=== PATIENT | male | born 1980 | race Caucasian/White ===

== ENCOUNTER 2019-09-03 10:01 | Emergency (ER) | payer BC ==
[2019-09-03 10:09] VITALS: BP 144/87; PULSE 72
--- NOTE | 2019-09-03 10:28 | EDM.PDOC ---
ED HPI GENERAL MEDICAL PROBLEM - General Chief Complaint: Laceration Stated Complaint: GUTTING DEER AND CUT FINGER Time Seen by Provider: 09/03/19 10:24 Source of Information: Reports: Patient History Limitations: Reports: No Limitations - History of Present Illness INITIAL COMMENTS - FREE TEXT/NARRATIVE: 38 YO WM presents to ER with finger tip laceration which occurred today while cleaning a deer. Pt reports using a sharp filet knife and accidentally cutting the tip of his right ring finger with the knife. Pt denies any other injury. Pt reports last tetanus is believed to be 3 years ago in clinic from laceration at that time. Pt able to control bleeding with pressure. Pt has no motor or significant sensory deficits. 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) Right Finger-Ring Pain Score (Numeric/FACES): 3 - Related Data Allergies Allergy/AdvReac Type Severity Reaction Status Date / Time No Known Drug Allergies Allergy none Verified 09/03/19 10:09 Home Meds: Home Meds Cephalexin [Keflex] 500 mg PO QID #28 capsule 09/03/19 [Rx] Past Medical History HEENT History: Reports: Impaired Vision Musculoskeletal History: Reports: Fracture Psychiatric History: Reports: Panic Attack Endocrine/Metabolic History: Reports: Obesity/BMI 30+ - Infectious Disease History Infectious Disease History: Reports: Chicken Pox - Past Surgical History Head Surgeries/Procedures: Reports: None Endocrine Surgical History: Reports: None Musculoskeletal Surgical History: Reports: None Social & Family History - Family History Family Medical History: Noncontributory Cardiac: Reports: [place] Psychiatric: Reports: Panic Attack ED ROS GENERAL - Review of Systems Review Of Systems: See Below Constitutional: Reports: No Symptoms HEENT: Reports: No Symptoms Respiratory: Reports: No Symptoms Cardiovascular: Reports: No Symptoms Endocrine: Reports: No Symptoms GI/Abdominal: Reports: No Symptoms : Reports: No Symptoms Musculoskeletal: Reports: No Symptoms Skin: Reports: Wound (finger tip avulsion to right ring finger) Neurological: Reports: No Symptoms Psychiatric: Reports: No Symptoms Hematologic/Lymphatic: Reports: No Symptoms Immunologic: Reports: No Symptoms ED EXAM, SKIN/RASH Exam: See Below Exam Limited By: No Limitations General Appearance: Alert, WD/WN, No Apparent Distress Throat/Mouth: Normal Inspection, Normal Lips, Normal Teeth, Normal Gums, Normal Oropharynx, Normal Voice, No Airway Compromise Head: Atraumatic, Normocephalic Neck: Normal Inspection, Supple, Non-Tender, Full Range of Motion Respiratory/Chest: No Respiratory Distress, Lungs Clear, Normal Breath Sounds, No Accessory Muscle Use, Chest Non-Tender Cardiovascular: Normal Peripheral Pulses, Regular Rate, Rhythm, No Edema, No Gallop, No JVD, No Murmur, No Rub GI/Abdominal: Normal Bowel Sounds, Soft, Non-Tender, No Organomegaly, No Distention, No Abnormal Bruit, No Mass Back Exam: Normal Inspection, Full Range of Motion Extremities: Normal Inspection, Normal Range of Motion, No Pedal Edema, Normal Capillary Refill Neurological: Alert, Oriented, CN II-XII Intact, Normal Cognition, Normal Gait, Normal Reflexes, No Motor/Sensory Deficits Psychiatric: Normal Affect, Normal Mood Skin: Wound/Incision (finger tip avulsion laceration to right ring finger) Location, Skin: Upper Extremity, Right Lymphatic: No Adenopathy Course - Vital Signs Last Recorded V/S: Last Vital Signs Temp 35.8 C 09/03/19 10:06 Pulse 72 09/03/19 10:06 Resp 16 09/03/19 10:06 BP 144/87 H 09/03/19 10:06 Pulse Ox 95 09/03/19 10:06 - Orders/Labs/Meds Orders: Active Orders 24 hr Category Date Time Status Fingers Fourth Digit Rt F8 [CR] Stat Exams 09/03/19 10:27 Ordered Departure - Departure Time of Disposition: 10:44 Disposition: Home, Self-Care 01 Condition: Good Clinical Impression: Avulsion, finger tip Qualifiers: Encounter type: initial encounter Qualified Code(s): S61.209A - Unspecified open wound of unspecified finger without damage to nail, initial encounter - Discharge Information Prescriptions: Cephalexin [Keflex] 500 mg PO QID #28 capsule Instructions: Wound Care, Adult Referrals: Laina Vargas PA-C [Primary Care Provider] - Forms: ED Department Discharge Additional Instructions: 1. discharge home 2. wound care instructions given- keep clean and dry 3. Keflex 500mg QID x 7 days for prophylaxis 4. follow up in 2 days in clinic for recheck 5. return to ER for worsening symptoms - My Orders Last 24 Hours: My Active Orders 09/03/19 10:27 Fingers Fourth Digit Rt F8 [CR] Stat - Assessment/Plan Last 24 Hours: My Active Orders 09/03/19 10:27 Fingers Fourth Digit Rt F8 [CR] Stat Assessment:: 1. right ring finger tip avulsion laceration Plan: 1. discharge home 2. wound care instructions given- keep clean and dry 3. Keflex 500mg QID x 7 days for prophylaxis 4. follow up in 2 days in clinic for recheck 5. return to ER for worsening symptoms
--- NOTE | 2019-09-03 10:54 | CR ---
[id number] RAD/RAD Fingers Right EXAM: 3 VIEWS 4TH DIGIT. INDICATION: TRAUMA. COMPARISON: None. DISCUSSION: Cortical irregularity involving the base of the distal 4th phalanx suggestive of nondisplaced fracture. IMPRESSION: 1. As above. Emmanuel Stout DO 09/03/19 1053 Thank you for allowing us to participate in the care of your patient.
[2019-09-03] MEDS: Diphtheria,Pertussis(Acell),Tetanus Vaccine 0.5 ML SDV IM ONE (10:56)
== END 2019-09-03 11:00 | disposition home or self-care (01) ==
LOC: KA.ED 10:01
DX: S61.214A Laceration without foreign body of right ring finger without damage to nail, initial encounter (principal); Z23 Encounter for immunization; E66.9 Obesity, unspecified; Z68.43 Body mass index [BMI] 50.0-59.9, adult; W26.0XXA Contact with knife, initial encounter
CPT/HCPCS: 73140-F8; 90471; 90715; 99283-25

== ENCOUNTER 2020-06-01 16:35 | Emergency (ER) | payer BC ==
[2020-06-01 16:48] VITALS: BP 136/83; PULSE 78
[2020-06-01] MEDS ORDERED: Ketorolac 60 MG/2 ML SDV IM ONE (16:54)
--- NOTE | 2020-06-01 17:02 | EDM.PDOC ---
ED HPI GENERAL MEDICAL PROBLEM - General Chief Complaint: General Stated Complaint: right lateral rib pain Time Seen by Provider: 06/01/20 17:02 Source of Information: Reports: Patient History Limitations: Reports: No Limitations - History of Present Illness INITIAL COMMENTS - FREE TEXT/NARRATIVE: 10 AM, while playing softball, right arm outstretched for a ball, when struck with the shoulder region of another player bluntly to the right lateral chest wall. [place] a pop when this occurred, but was able to finish the game. He then rested between games and was actually able to play 2 more games with minimal discomfort/at least not specifically worsening. He then rode for roughly 2 hours home at which time getting out of the vehicle noticed significant discomfort with positioning as well as taking a deep breath. Pain remains predominantly at the mid right lateral chest wall fifth rib region. Denies any other injuries or complaints. He is not truly short of breath but states uncomfortable with deep inspiration. Onset: Today, Sudden Right Lower Thoracic Pain Score (Numeric/FACES): 7 - Related Data Allergies Allergy/AdvReac Type Severity Reaction Status Date / Time No Known Drug Allergies Allergy none Verified 09/03/19 10:09 Home Meds: Home Meds Rosuvastatin Calcium 20 mg PO DAILY 06/01/20 [History] Past Medical History HEENT History: Reports: Impaired Vision Musculoskeletal History: Reports: Fracture Psychiatric History: Reports: Panic Attack Endocrine/Metabolic History: Reports: Obesity/BMI 30+ - Infectious Disease History Infectious Disease History: Reports: Chicken Pox - Past Surgical History Head Surgeries/Procedures: Reports: None Endocrine Surgical History: Reports: None Musculoskeletal Surgical History: Reports: None Social & Family History - Family History Family Medical History: Noncontributory Cardiac: Reports: [place] Psychiatric: Reports: Panic Attack ED ROS GENERAL - Review of Systems Review Of Systems: Comprehensive ROS is negative, except as noted in HPI. ED EXAM, GENERAL - Physical Exam Exam: See Below Free Text/Narrative:: Alert oriented in no specific distress. No cyanosis, no pallor is noted. HEENT is negative for discharge or deformity. Neck is soft supple Thorax is clear no wheezes no crackles somewhat limited to deep inspiration secondary of discomfort to the right lateral rib region. Cardiac is regular I do not appreciate any murmur. Tenderness over the fifth rib region right lateral chest with no ecchymosis no crepitus noted. There is tenderness in the posterior aspect but minimal. When compressing palpating in deep fashion the right posterior ribs he does note mild discomfort to the lateral wall. No flank pain is noted no spinal pain no deficits in motion of the extremities. States pain is almost gone when in the right position but moving and deep breath exacerbates that. States he injection of Toradol he was given seems to be taking the edge off his he is able to move easier now with less discomfort. Discussed rib x-rays to confirm/rule out rib fracture. Course - Vital Signs Last Recorded V/S: Last Vital Signs Temp 36.3 C 06/01/20 16:38 Pulse 78 06/01/20 16:38 Resp 18 06/01/20 16:38 BP 136/83 06/01/20 16:38 Pulse Ox 94 L 06/01/20 16:38 - Orders/Labs/Meds Orders: Active Orders 24 hr Category Date Time Status Ribs 3V w Chest Bi [CR] Routine Exams 06/01/20 16:54 Ordered Meds: Medications Discontinued Medications Generic Name Dose Route Start Last Admin Trade Name Awais PRN Reason Stop Dose Admin Ketorolac Tromethamine 60 mg 06/01/20 16:54 06/01/20 17:00 Toradol IM 06/01/20 16:55 60 mg ONETIME ONE Administration Departure - Departure Time of Disposition: 17:28 Disposition: Home, Self-Care 01 Condition: Good Clinical Impression: Right rib fracture, Rib pain on right side - Discharge Information *PRESCRIPTION DRUG MONITORING PROGRAM REVIEWED*: Not Applicable *COPY OF PRESCRIPTION DRUG MONITORING REPORT IN PATIENT ADRIEN: Not Applicable Forms: ED Department Discharge Additional Instructions: You have 1 slightly displaced rib fracture. You need to avoid any motion, lifting or reaching, that aggravates or increases your pain. Position of comfort with shallow but occasional deep breath to reduce the risk of pneumonia developing. Ribs can take 8+ weeks to heal, dependent on activity and re-injury/aggravation. You may take Tylenol the remainder of today. Starting tomorrow morning you may rotate Tylenol and ibuprofen for discomfort. Ice to the chest wall may help your discomfort by decreasing inflammation. In the event you develop shortness of breath or's increasing/severe chest pain in that region, you need to be seen as soon as possible. Follow-up with your clinic as needed if not starting to show improvement by the end of the first week. Return to the emergency department in the event of sudden worsening symptoms Sepsis Event Note (ED) - Evaluation Sepsis Screening Result: No Definite Risk - Focused Exam Vital Signs: Vital Signs Temp Pulse Resp BP Pulse Ox 06/01/20 16:38 36.3 C 78 18 136/83 94 L - Problem List & Annotations (1) Rib pain on right side SNOMED Code(s): 698447188 Code(s): R07.81 - PLEURODYNIA Status: Acute Priority: High Onset Date: 06/01/20 (2) Injury due to being struck during sports event SNOMED Code(s): 660519469 Code(s): W21.9XXA - STRIKING AGAINST OR STRUCK BY [employer] EQUIPMENT, INIT Status: Acute Priority: High Onset Date: 06/01/20 (3) Closed rib fracture SNOMED Code(s): 00816049 Code(s): S22.39XA - FRACTURE OF ONE RIB, UNSP SIDE, INIT FOR CLOS FX Status: Acute Priority: High Qualifiers: Encounter type: initial encounter Rib fracture type: single rib Laterality: right Qualified Code(s): S22.31XA - Fracture of one rib, right side, initial encounter for closed fracture (4) Right rib fracture SNOMED Code(s): 25970231 Code(s): S22.31XA - FRACTURE OF ONE RIB, RIGHT SIDE, INIT FOR CLOS FX Status: Acute Priority: Medium Qualifiers: Encounter type: initial encounter Fracture type: closed - Problem List Review Problem List Initiated/Reviewed/Updated: Yes - My Orders Last 24 Hours: My Active Orders 06/01/20 16:54 Ribs 3V w Chest Bi [CR] Routine - Assessment/Plan Last 24 Hours: My Active Orders 06/01/20 16:54 Ribs 3V w Chest Bi [CR] Routine Plan: You have 1 slightly displaced rib fracture. You need to avoid any motion, lifting or reaching, that aggravates or increases your pain. Position of comfort with shallow but occasional deep breath to reduce the risk of pneumonia developing. Ribs can take 8+ weeks to heal, dependent on activity and re-injury/aggravation. You may take Tylenol the remainder of today. Starting tomorrow morning you may rotate Tylenol and ibuprofen for discomfort. Ice to the chest wall may help your discomfort by decreasing inflammation. In the event you develop shortness of breath or's increasing/severe chest pain in that region, you need to be seen as soon as possible. Follow-up with your clinic as needed if not starting to show improvement by the end of the first week. Return to the emergency department in the event of sudden worsening symptoms.
--- NOTE | 2020-06-01 17:44 | CR ---
[id number] RAD/RAD Ribs Right W PA Chest EXAM: RAD Ribs Right W PA Chest INDICATION: PAIN, SOFTBALL INJURY, PERSON RAN INTO PTS RT SIDE COMPARISON: None. DISCUSSION: Cardiomediastinal silhouette is normal in size and contour. No infiltrate, effusion, pneumothorax, or edema. Acute minimally displaced fracture of rib 9 on the right laterally. IMPRESSION: Acute minimally displaced fracture of rib 9 on the right laterally. No pneumothorax. Emmanuel Stout DO 06/01/20 1743 Thank you for allowing us to participate in the care of your patient.
== END 2020-06-01 17:40 | disposition home or self-care (01) ==
LOC: KA.ED 16:35
DX: S22.31XA Fracture of one rib, right side, initial encounter for closed fracture (principal); E66.9 Obesity, unspecified; Z68.41 Body mass index [BMI] 40.0-44.9, adult; W50.0XXA Accidental hit or strike by another person, initial encounter; Y93.64 Activity, baseball
CPT/HCPCS: 71101; 96372; 99283; J1885

== ENCOUNTER 2020-09-20 09:31 | Emergency (ER) | payer BC ==
[2020-09-20 09:43] VITALS: BP 136/92; PULSE 68
--- NOTE | 2020-09-20 10:18 | EDM.PDOC ---
ED HPI GENERAL MEDICAL PROBLEM - General Chief Complaint: Eye Problems Stated Complaint: right eye irritation Time Seen by Provider: 09/20/20 09:50 Source of Information: Reports: Patient ([id number]) History Limitations: Reports: No Limitations - History of Present Illness INITIAL COMMENTS - FREE TEXT/NARRATIVE: 39-year-old male presents to the emergency room with red eye and tearing. Patient states that he was eating a metal yesterday and was wearing protective goggles when he felt sudden onset of pain and tearing in his eye. He has had a similar episode with this in his left eye but reports this is less severe. He continues to have difficulty keeping the eye open due to the discomfort and tearing and notices redness he comes in for further evaluation. He does wear corrective lenses which she does not have today he is not wearing contacts. He has obvious tearing and redness in the eye. Visual acuity was checked by the nurse and was 20/70 in both eyes without corrective lenses. He denies any diplopia or blurriness or loss of sight. Onset Date: 09/19/20 Duration: Hour(s):, Constant Location: Reports: Other (right eye) Quality: Reports: Ache Severity: Mild Improves with: Reports: None Worsens with: Reports: None Context: Reports: Other (grinding metal) Associated Symptoms: Reports: Other (Denies blurred or double vision, complains of tearing and red eye.) Right Eye Pain Score (Numeric/FACES): 4 - Related Data Allergies Allergy/AdvReac Type Severity Reaction Status Date / Time No Known Drug Allergies Allergy none Verified 09/20/20 09:33 Home Meds: Home Meds Rosuvastatin Calcium 20 mg PO DAILY 06/01/20 [History] Past Medical History HEENT History: Reports: Impaired Vision Cardiovascular History: Reports: High Cholesterol Respiratory History: Reports: None Gastrointestinal History: Reports: Hemorrhoids Genitourinary History: Reports: None Musculoskeletal History: Reports: Fracture Neurological History: Reports: Concussion Psychiatric History: Reports: Panic Attack Endocrine/Metabolic History: Reports: Obesity/BMI 30+ - Infectious Disease History Infectious Disease History: Reports: Chicken Pox - Past Surgical History Head Surgeries/Procedures: Reports: None HEENT Surgical History: Reports: None Cardiovascular Surgical History: Reports: None Respiratory Surgical History: Reports: None GI Surgical History: Reports: None Male Surgical History: Reports: Circumcision Endocrine Surgical History: Reports: None Neurological Surgical History: Reports: None Musculoskeletal Surgical History: Reports: None Other Musculoskeletal Surgeries/Procedures:: H/O fractures to the collar bone, leg and arm Social & Family History - Family History Family Medical History: No Pertinent Family History Cardiac: Reports: [place] Psychiatric: Reports: Panic Attack - Tobacco Use Tobacco Use Status *Q: Never Tobacco User - Caffeine Use Caffeine Use: Reports: Coffee, Soda, Tea - Alcohol Use Days Per Week of Alcohol Use: 1 Number of Drinks Per Day: 0 Total Drinks Per Week: 0 - Recreational Drug Use Recreational Drug Use: No ED ROS GENERAL - Review of Systems Review Of Systems: Comprehensive ROS is negative, except as noted in HPI. ED EXAM GENERAL W FULL EYE - Physical Exam Exam: See Below Exam Limited By: No Limitations General Appearance: Alert, WD/WN, No Apparent Distress Eye Exam: Bilateral Eye: EOMI, PERRL, Other (tearing red right eye) Visual Acuity (R) 20/: 70 Visual Acuity (L) 20/: 70 With Correction: No Eyelids: Bilateral: Normal Appearance Conjunctiva & Sclera: Right: Discharge (tearing) Extraocular Movements: Bilateral: Intact Pupils: Normal Accommodation Pupillary Size: Bilateral: 2 mm Pupillary Reaction: Bilateral: Brisk Ears: Hearing Grossly Normal Nose: Normal Inspection. No: Nasal Drainage, Clear Rhinorrhea Throat/Mouth: Normal Inspection, Normal Voice, No Airway Compromise Head: Atraumatic, Normocephalic Neck: Normal Inspection, Supple Respiratory/Chest: No Respiratory Distress ED EYE w/ Add Procedure - Eye Procedure Alcaine Drops Administered: Yes Eye FB Removal: no Removal w/ Cotton Swab, no Removal w/ Needle Progress: Bluelight was used and there appears to be a small corneal abrasion in the right lateral aspect of the eye. No foreign body was detected. X-rays did not reveal any retained foreign metal. Course - Vital Signs Last Recorded V/S: Last Vital Signs Temp 98.4 F 09/20/20 09:36 Pulse 68 09/20/20 09:36 Resp 16 09/20/20 09:36 BP 136/92 H 09/20/20 09:36 Pulse Ox 98 09/20/20 09:36 - Orders/Labs/Meds Orders: Active Orders 24 hr Category Date Time Status FB Localized Eye Rt [CR] Stat Exams 09/20/20 09:53 Ordered Meds: Medications Discontinued Medications Generic Name Dose Route Start Last Admin Trade Name Awais PRN Reason Stop Dose Admin Tetracaine HCl 1 ml 09/20/20 10:34 09/20/20 10:36 Tetracaine 0.5% Steri-Unit Maria De Jesus EYERT 09/20/20 10:35 1 ml ASDIRECTED ONE Administration - Radiology Interpretation Free Text/Narrative:: Xray: Right orbital x-ray 1 view Discussion/impression: No radiopaque foreign body Departure - Departure Time of Disposition: 10:51 Disposition: Home, Self-Care 01 Condition: Good Clinical Impression: Abrasion of right cornea Qualifiers: Encounter type: initial encounter Qualified Code(s): S05.01XA - Injury of conjunctiva and corneal abrasion without foreign body, right eye, initial encounter - Discharge Information Instructions: Eye Foreign Body, [id number], Corneal Abrasion Referrals: Laina Vargas PA-C [Primary Care Provider] - Forms: ED Department Discharge Additional Instructions: 1. Use the eyedrops every 4 hours into the right eye. 2. Recommend follow-up with ophthalmology Tuesday in [place] [employer]. - is a phone number for [email or web address] 3. Return back to the emergency room if symptoms worsen or visual changes occur. Sepsis Event Note (ED) - Evaluation Sepsis Screening Result: No Definite Risk - Focused Exam Vital Signs: Vital Signs Temp Pulse Resp BP Pulse Ox 09/20/20 09:36 98.4 F 68 16 136/92 H 98 - My Orders Last 24 Hours: My Active Orders 09/20/20 09:53 FB Localized Eye Rt [CR] Stat - Assessment/Plan Last 24 Hours: My Active Orders 09/20/20 09:53 FB Localized Eye Rt [CR] Stat Assessment:: Right corneal abrasion Plan: 1. Use the eyedrops every 4 hours into the right eye. 2. Recommend follow-up with ophthalmology Tuesday in [place]. - is a phone number for [email or web address] 3. Return back to the emergency room if symptoms worsen or visual changes occur.
[2020-09-20] MEDS ORDERED: Tetracaine HCl/PF 0.5% 4 ML Bottle EYERT ONE (10:34)
--- NOTE | 2020-09-20 10:49 | CR ---
[id number] RAD/RAD Eye Foreign Body Exam: RAD Eye Foreign Body Indication:FEELING OF METAL IN RIGHT EYE. Comparison: No prior imaging for comparison. Discussion/Impression: No radiopaque foreign body. Tim Zarate MD 09/20/20 1048 Thank you for allowing us to participate in the care of your patient.
== END 2020-09-20 10:48 | disposition home or self-care (01) ==
LOC: KA.ED 09:31
DX: S05.01XA Injury of conjunctiva and corneal abrasion without foreign body, right eye, initial encounter (principal); E78.00 Pure hypercholesterolemia, unspecified; E66.9 Obesity, unspecified; Z68.41 Body mass index [BMI] 40.0-44.9, adult; Z79.899 Other long term (current) drug therapy; X58.XXXA Exposure to other specified factors, initial encounter
CPT/HCPCS: 70030-RT; 99283

== ENCOUNTER 2021-05-05 21:19 | Observation (INO) | payer BC ==
[2021-05-05] MEDS ORDERED: Sodium Chloride 0.9% 10 ML Syringe FLUSH PRN (21:21)
[2021-05-05] MEDS ORDERED: Diltiazem 25 MG/5 ML SDV IVPUSH ONE (21:25)
--- NOTE | 2021-05-05 21:25 | EDM.PDOC ---
ED HPI GENERAL MEDICAL PROBLEM - General Chief Complaint: Cardiovascular Problem Stated Complaint: CHEST PRESSURE Time Seen by Provider: 05/05/21 21:22 Source of Information: Reports: Patient History Limitations: Reports: No Limitations - History of Present Illness INITIAL COMMENTS - FREE TEXT/NARRATIVE: 40 YO WM PRESENTS TO ER COMPLAINING OF CHEST TIGHTNESS WITH PALPITATIONS AND SHORTNESS OF BREATH. PT REPORTS HE WAS PLAYING SOFTBALL WHEN HIS SYMPTOMS BEGAN. PT STATES HE WAS SLIDING FOR SECOND BASE AND ROLLED OVER THE BALL WITH HIS CHEST PROMPTING PAIN AND PALPITATIONS. PT WITH HISTORY OF ANXIETY AND ELEVATED CHOLESTEROL. PT DENIES ANY HISTORY OF CAD OR CARDIAC ARRHYTHMIAS. PT ALERT AND ORIENTED X 4 AND ANXIOUS. PT DENIES ANY CHEST PAIN CURRENTLY. PT REPORTS ASSOCIATED LIGHTHEADEDNESS WITHOUT SYNCOPE. Onset: Today Location: Reports: Chest Quality: Reports: Other (TIGHTNESS) Severity: Mild Improves with: Reports: None Worsens with: Reports: None Context: Reports: Activity Associated Symptoms: Reports: Chest Pain, Diaphoresis, Shortness of Breath. Denies: Cough, Fever/Chills, Headaches, Loss of Appetite, Malaise, Nausea/Vomiting, Syncope, Weakness - Related Data Allergies Allergy/AdvReac Type Severity Reaction Status Date / Time No Known Drug Allergies Allergy none Verified 05/05/21 21:39 Home Meds: Home Meds Rosuvastatin Calcium 20 mg PO DAILY 06/01/20 [History] Past Medical History HEENT History: Reports: Impaired Vision Cardiovascular History: Reports: High Cholesterol Respiratory History: Reports: None Gastrointestinal History: Reports: Hemorrhoids Genitourinary History: Reports: None Musculoskeletal History: Reports: Fracture Neurological History: Reports: Concussion Psychiatric History: Reports: Panic Attack Endocrine/Metabolic History: Reports: Obesity/BMI 30+ - Infectious Disease History Infectious Disease History: Reports: Chicken Pox - Past Surgical History Head Surgeries/Procedures: Reports: None HEENT Surgical History: Reports: None Cardiovascular Surgical History: Reports: None Respiratory Surgical History: Reports: None GI Surgical History: Reports: None Male Surgical History: Reports: Circumcision Endocrine Surgical History: Reports: None Neurological Surgical History: Reports: None Musculoskeletal Surgical History: Reports: None Other Musculoskeletal Surgeries/Procedures:: H/O fractures to the collar bone, leg and arm Social & Family History - Family History Family Medical History: No Pertinent Family History Cardiac: Reports: [place] Psychiatric: Reports: Panic Attack - Caffeine Use Caffeine Use: Reports: Coffee, Soda, Tea ED ROS GENERAL - Review of Systems Review Of Systems: See Below Constitutional: Reports: No Symptoms HEENT: Reports: No Symptoms Respiratory: Reports: Shortness of Breath Cardiovascular: Reports: Chest Pain, Lightheadedness, Palpitations Endocrine: Reports: No Symptoms GI/Abdominal: Reports: No Symptoms : Reports: No Symptoms Musculoskeletal: Reports: No Symptoms Skin: Reports: No Symptoms Neurological: Reports: No Symptoms Psychiatric: Reports: No Symptoms Hematologic/Lymphatic: Reports: No Symptoms Immunologic: Reports: No Symptoms ED EXAM, GENERAL - Physical Exam Exam: See Below Exam Limited By: No Limitations General Appearance: Alert, WD/WN, No Apparent Distress Eye Exam: Bilateral Eye: EOMI, PERRL Head: Atraumatic, Normocephalic Neck: Normal Inspection, Supple, Non-Tender, Full Range of Motion Respiratory/Chest: No Respiratory Distress, Lungs Clear, Normal Breath Sounds, No Accessory Muscle Use, Chest Non-Tender Cardiovascular: Normal Peripheral Pulses, No Edema, No Gallop, No JVD, No Murmur, No Rub, Tachycardia, Irregularly Irregular GI/Abdominal: Normal Bowel Sounds, Soft, Non-Tender, No Organomegaly, No Distention, No Abnormal Bruit, No Mass Back Exam: Normal Inspection, Full Range of Motion, NT Extremities: Normal Inspection, Normal Range of Motion, Non-Tender, Normal Capillary Refill, No Pedal Edema Neurological: Alert, Oriented, CN II-XII Intact, Normal Cognition, Normal Gait, Normal Reflexes, No Motor/Sensory Deficits Psychiatric: Normal Affect, Normal Mood Skin Exam: Warm, Dry, Intact, Normal Color, No Rash Lymphatic: No Adenopathy #1 Interpretation EKG Date: 05/05/21 Time: 21:23 Rhythm: A-Fib Rate (Beats/Min): 164 [place]: Normal P-Wave: Present QRS: Normal ST-T: Normal QT: Normal Comparison: NA - No Prior EKG Course - Vital Signs Last Recorded V/S: Last Vital Signs Temp 97.9 F 05/05/21 21:21 Pulse 101 H 05/05/21 22:13 Resp 24 H 05/05/21 22:00 BP 110/74 05/05/21 22:13 Pulse Ox 99 05/05/21 22:32 - Orders/Labs/Meds Orders: Active Orders 24 hr Category Date Time Status Patient Status Manage Transfer [TRANSFER] Routine ADT 05/05/21 22:27 Active Patient Status [ADT] Routine ADT 05/05/21 22:28 Active Cardiac Monitoring [RC] . DIRECTED Care 05/05/21 21:21 Active Cardiac Monitoring [RC] CONTINUOUS Care 05/05/21 22:29 Active EKG Documentation Completion [RC] ASDIRECTED Care 05/05/21 21:21 Active EKG Documentation Completion [RC] ASDIRECTED Care 05/05/21 22:05 Active Oxygen Therapy [RC] PRN Care 05/05/21 22:28 Active Peripheral IV Care [RC] . DIRECTED Care 05/05/21 21:21 Active Up ad Rubia [RC] ASDIRECTED Care 05/05/21 22:28 Active VTE/DVT Education [RC] PER UNIT ROUTINE Care 05/05/21 22:28 Active Vital Signs [RC] Q4H Care 05/05/21 22:28 Active Heart Healthy Diet [DIET] Diet 05/06/21 Breakfast Active Chest 1V Frontal [CR] Stat Exams 05/05/21 21:21 Ordered CORONAVIRUS COVID-19 RAPID [MOLEC] Stat Lab 05/05/21 22:22 Ordered MAGNESIUM [CHEM] AM Lab 05/06/21 05:11 Ordered TROPONIN I HIGH SENSITIVITY [CHEM] AM Lab 05/06/21 05:11 Ordered Diltiazem 125 MG in NS 125 ML @ 5 MG/HR (100ml) Med 05/05/21 22:45 Ordered Diltiazem 125 mg Sodium Chloride 0.9% [Normal Saline] 100 ml IV TITRATE Sodium Chloride 0.9% [Normal Saline] 1,000 ml Med 05/05/21 21:57 Active IV .BOLUS Sodium Chloride 0.9% [Saline Flush] Med 05/05/21 21:21 Active 10 ml FLUSH Q8HR PRN Peripheral IV Insertion Adult [OM.PC] Routine Oth 05/05/21 21:21 Ordered Resuscitation Status Routine Resus Stat 05/05/21 22:28 Ordered EKG 12 Lead [EK] Stat Ther 05/05/21 21:21 Ordered EKG 12 Lead [EK] Stat Ther 05/05/21 22:00 Ordered Medication Orders Sodium Chloride (Normal Saline) 1,000 mls @ 999 mls/hr IV .BOLUS ONE Stop: 05/05/21 22:57 Last Admin: 05/05/21 22:00 Dose: 999 mls/hr Documented by: MATTHIAS Diltiazem HCl 125 mg/ Sodium (Chloride) 125 mls @ 5 mls/hr IV TITRATE YOGESH; Protocol Sodium Chloride (Sodium Chloride 0.9% 10 Ml Syringe) 10 ml FLUSH Q8HR PRN PRN Reason: keep vein open Labs: Laboratory Tests 05/05/21 05/05/21 05/05/21 Range/Units 21:30 21:30 21:30 WBC 9.79 (5.00-10.00) 10^3/uL RBC 5.51 (4.50-6.00) 10^6/uL Hgb 15.6 (13.0-17.0) g/dL Hct 46.7 (40.0-52.0) % MCV 84.8 (82.0-92.0) fL MCH 28.3 (27.0-31.0) pg MCHC 33.4 (32.0-36.0) g/dL RDW 13.4 (11.5-14.5) % Plt Count 338 (150-400) 10^3/uL MPV 9.6 (7.4-10.4) fL Immature Gran % (Auto) 0.1 (0.0-5.0) % Neut % (Auto) 53.2 (50.0-70.0) % Lymph % (Auto) 38.0 (20.0-40.0) % [place] % (Auto) 7.3 (2.0-8.0) % Eos % (Auto) 1.0 (1.0-3.0) % Baso % (Auto) 0.4 (0.0-1.0) % Neut # (Auto) 5.21 (2.50-7.00) 10^3/uL Lymph # (Auto) 3.72 (1.00-4.00) 10^3/uL [place] # (Auto) 0.71 (0.10-0.80) 10^3/uL Eos # (Auto) 0.10 (0.10-0.30) 10^3/uL Baso # (Auto) 0.04 (0.00-0.10) 10^3/uL Immature Gran # (Auto) 0.01 (0.00-0.50) 10^3/uL PT 10.1 (9.2-11.2) SEC INR 1.0 (0.9-1.1) APTT 26.3 (22.8-31.4) SEC Sodium 139 (136-145) mmol/L Potassium 3.8 (3.5-5.1) mmol/L Chloride 100 (98-107) mmol/L Carbon Dioxide 17.6 L (21.0-32.0) mmol/L Anion Gap 25.2 H (5-15) mmol/L BUN 23 H (7-18) mg/dL Creatinine 1.17 (0.51-1.17) mg/dL Est Cr Clr Drug Dosing 96.60 mL/min Estimated GFR (MDRD) > 60 mL/min Glucose 136 (70-140) mg/dL Calcium 9.9 (8.7-10.3) mg/dL Total Bilirubin 0.4 (0.2-1.0) mg/dL AST 24 (15-37) U/L ALT 27 (14-63) U/L Alkaline Phosphatase 98 (46-116) U/L Creatine Kinase 427 H* (26-276) U/L CK-MB (CK-2) 2.69 (0.00-3.60) ng/mL Troponin I High Sens 6.100 (0-76.000) pg/mL B-Natriuretic Peptide 24 (0-100) pg/mL Total Protein 9.0 H (6.4-8.2) g/dL Albumin 4.81 (3.40-5.00) g/dL Meds: Medications Generic Name Dose Route Start Last Admin Trade Name Freq PRN Reason Stop Dose Admin Sodium Chloride 1,000 mls @ 999 mls/hr 05/05/21 21:57 05/05/21 22:00 Normal Saline IV 05/05/21 22:57 999 mls/hr .BOLUS ONE Administration Diltiazem HCl 125 mg/ Sodium 125 mls @ 5 mls/hr 05/05/21 22:45 Chloride IV TITRATE YOGESH Protocol 5 MG/HR Sodium Chloride 10 ml 05/05/21 21:21 Sodium Chloride 0.9% 10 Ml Syringe FLUSH Q8HR PRN keep vein open Discontinued Medications Generic Name Dose Route Start Last Admin Trade Name Freq PRN Reason Stop Dose Admin Diltiazem HCl 20 mg 05/05/21 21:25 05/05/21 21:47 Diltiazem 25 Mg/5 Ml Sdv IVPUSH 05/05/21 21:26 20 mg ONETIME ONE Administration Diltiazem HCl 125 mg/ Sodium 125 mls @ 15 mls/hr 05/05/21 22:00 Chloride IV TITRATE YOGESH 15 MG/HR Diltiazem HCl 125 mg/ Sodium 125 mls @ 5 mls/hr 05/05/21 22:45 Chloride IV TITRATE YOGESH 5 MG/HR - Radiology Interpretation Free Text/Narrative:: CXR-NAD Departure - Departure Time of Disposition: 22:25 Disposition: Refer to Observation Condition: Good Clinical Impression: New onset atrial fibrillation, Atrial fibrillation with rapid ventricular response Referrals: Angelica Blanchard MD [Primary Care Provider] - Sepsis Event Note (ED) - Focused Exam Vital Signs: Vital Signs Temp Pulse Resp BP Pulse Ox Pulse Ox 05/05/21 22:32 99 05/05/21 22:13 101 H 110/74 05/05/21 22:00 115 H 24 H 122/78 100 05/05/21 21:45 144 H 26 H 124/66 97 05/05/21 21:21 97.9 F 163 H 24 H 129/88 100 - My Orders Last 24 Hours: My Active Orders 05/05/21 21:21 Cardiac Monitoring [RC] . DIRECTED EKG Documentation Completion [RC] ASDIRECTED Peripheral IV Care [RC] . DIRECTED Chest 1V Frontal [CR] Stat Sodium Chloride 0.9% [Saline Flush] 10 ml FLUSH Q8HR PRN Peripheral IV Insertion Adult [OM.PC] Routine EKG 12 Lead [EK] Stat 05/05/21 21:57 Sodium Chloride 0.9% [Normal Saline] 1,000 ml IV .BOLUS 05/05/21 22:00 EKG 12 Lead [EK] Stat 05/05/21 22:05 EKG Documentation Completion [RC] ASDIRECTED 05/05/21 22:22 CORONAVIRUS COVID-19 RAPID [MOLEC] Stat 05/05/21 22:27 Patient Status Manage Transfer [TRANSFER] Routine 05/05/21 22:28 Patient Status [ADT] Routine Oxygen Therapy [RC] PRN Up ad Rubia [RC] ASDIRECTED VTE/DVT Education [RC] PER UNIT ROUTINE Vital Signs [RC] Q4H Resuscitation Status Routine 05/05/21 22:29 Cardiac Monitoring [RC] CONTINUOUS 05/05/21 22:45 Diltiazem 125 MG in NS 125 ML @ 5 MG/HR (100ml) Diltiazem 125 mg Sodium Chloride 0.9% [Normal Saline] 100 ml IV TITRATE 05/06/21 05:11 MAGNESIUM [CHEM] AM TROPONIN I HIGH SENSITIVITY [CHEM] AM 05/06/21 Breakfast Heart Healthy Diet [DIET] - Assessment/Plan Admission H&P: Please use this note as an admission H&P Last 24 Hours: My Active Orders 05/05/21 21:21 Cardiac Monitoring [RC] . DIRECTED EKG Documentation Completion [RC] ASDIRECTED Peripheral IV Care [RC] . DIRECTED Chest 1V Frontal [CR] Stat Sodium Chloride 0.9% [Saline Flush] 10 ml FLUSH Q8HR PRN Peripheral IV Insertion Adult [OM.PC] Routine EKG 12 Lead [EK] Stat 05/05/21 21:57 Sodium Chloride 0.9% [Normal Saline] 1,000 ml IV .BOLUS 05/05/21 22:00 EKG 12 Lead [EK] Stat 05/05/21 22:05 EKG Documentation Completion [RC] ASDIRECTED 05/05/21 22:22 CORONAVIRUS COVID-19 RAPID [MOLEC] Stat 05/05/21 22:27 Patient Status Manage Transfer [TRANSFER] Routine 05/05/21 22:28 Patient Status [ADT] Routine Oxygen Therapy [RC] PRN Up ad Rubia [RC] ASDIRECTED VTE/DVT Education [RC] PER UNIT ROUTINE Vital Signs [RC] Q4H Resuscitation Status Routine 05/05/21 22:29 Cardiac Monitoring [RC] CONTINUOUS 05/05/21 22:45 Diltiazem 125 MG in NS 125 ML @ 5 MG/HR (100ml) Diltiazem 125 mg Sodium Chloride 0.9% [Normal Saline] 100 ml IV TITRATE 05/06/21 05:11 MAGNESIUM [CHEM] AM TROPONIN I HIGH SENSITIVITY [CHEM] AM 05/06/21 Breakfast Heart Healthy Diet [DIET] Assessment:: 1. NEW ONSET ATRIAL FIBRILLATION WITH RVR Plan: 1. ADMIT TO MEDICINE/OBSERVATION- DR PERALTA ACCEPTING @1821 2. CARDIZEM GTT 10MG/HR 3. SUPPORTIVE CARE 4. REPEAT TROP I IN AM
[2021-05-05] MEDS ORDERED: Sodium Chloride 0.9% 1,000 ML IV ONE (21:57)
[2021-05-05 21:58] LABS: PTT,PARTIAL THROMBOPLSTIN TIME 26.3 SEC (22.8-31.4)
[2021-05-05] MEDS ORDERED: Diltiazem 125 MG in Sodium Chloride 0.9% 100 ML IV SCH ×5 (22:00→22:45)
[2021-05-05 22:03] LABS: ANION GAP 25.2 mmol/L (5-15); CHLORIDE,CL 100 mmol/L (98-107); SODIUM,NA 139 mmol/L (136-145)
[2021-05-05] MEDS ORDERED: Melatonin 3 MG Tab PO PRN (23:40)
--- NOTE | 2021-05-06 07:47 | CR ---
[id number] RAD/RAD Chest PA or AP 1V EXAM: FRONTAL CHEST INDICATION: Chest pain. COMPARISON: June 01, 2020. DISCUSSION: Chronic healed lower rib fracture. Borderline heart size without evidence of edema. Mild elevation right hemidiaphragm. No effusions. IMPRESSION: 1. No acute findings. Ron Stephens MD 05/06/21 0746 Thank you for allowing us to participate in the care of your patient.
--- NOTE | 2021-05-06 09:40 | PCM.PN ---
- General Info Date of Service: 05/06/21 Admission Dx/Problem (Free Text): New onset A-fib with RVR. - Review of Systems Systems Review Comment:: Zev was admitted 05/05 via ambulance after he slid into second base during a softball game out of town and rolled over a ball and experience chest tightness, SOB and racing heart. He made it to home [place] and then said he needed to leave and attempted to drive himself home but had to well puller and call the ambulance as he did not feel well or safe enough to drive to the ER. In the ER he was noted to be in a-fib with RVR, rate in the 150's. He was given a cardizem bolus and started on a drip and his HR eventually came down to the 60's where he has remained overnight, although still in a-fib. He has no hx of a-fib, no known f amily hx of a-fib. He has no hx of thyroid problems. He has been more active recently going for walks, in an attempt to lose weight. He has a hx of anxiety with panic attacks as well as hyperlipidemia. No hx of HTN. He has remained on a diltiazem drip at 5mg/hr keeping his HR in the 60's. He can feel the abnormal rhythm of his heart but his chest tightness has resolved. He has some mild SOB. Troponin x 2 negative. Last check was this AM with labs. - Patient Data Vitals - Most Recent: Last Vital Signs Temp 98.1 F 05/06/21 06:54 Pulse 75 05/06/21 06:54 Resp 18 05/06/21 06:54 BP 97/65 05/06/21 06:54 Pulse Ox 98 05/06/21 06:54 Weight - Most Recent: 302 lb I&O - Last 24 Hours: Intake & Output 05/05/21 05/06/21 05/06/21 22:59 06:59 14:59 Intake Total 235 Balance 235 Lab Results Last 24 Hours: Laboratory Results - last 24 hr 05/05/21 05/05/21 05/05/21 Range/Units 21:30 21:30 21:30 WBC 9.79 (5.00-10.00) 10^3/uL RBC 5.51 (4.50-6.00) 10^6/uL Hgb 15.6 (13.0-17.0) g/dL Hct 46.7 (40.0-52.0) % MCV 84.8 (82.0-92.0) fL MCH 28.3 (27.0-31.0) pg MCHC 33.4 (32.0-36.0) g/dL RDW 13.4 (11.5-14.5) % Plt Count 338 (150-400) 10^3/uL MPV 9.6 (7.4-10.4) fL Immature Gran % (Auto) 0.1 (0.0-5.0) % Neut % (Auto) 53.2 (50.0-70.0) % Lymph % (Auto) 38.0 (20.0-40.0) % [place] % (Auto) 7.3 (2.0-8.0) % Eos % (Auto) 1.0 (1.0-3.0) % Baso % (Auto) 0.4 (0.0-1.0) % Neut # (Auto) 5.21 (2.50-7.00) 10^3/uL Lymph # (Auto) 3.72 (1.00-4.00) 10^3/uL [place] # (Auto) 0.71 (0.10-0.80) 10^3/uL Eos # (Auto) 0.10 (0.10-0.30) 10^3/uL Baso # (Auto) 0.04 (0.00-0.10) 10^3/uL Immature Gran # (Auto) 0.01 (0.00-0.50) 10^3/uL PT 10.1 (9.2-11.2) SEC INR 1.0 (0.9-1.1) APTT 26.3 (22.8-31.4) SEC Sodium 139 (136-145) mmol/L Potassium 3.8 (3.5-5.1) mmol/L Chloride 100 (98-107) mmol/L Carbon Dioxide 17.6 L (21.0-32.0) mmol/L Anion Gap 25.2 H (5-15) mmol/L BUN 23 H (7-18) mg/dL Creatinine 1.17 (0.51-1.17) mg/dL Est Cr Clr Drug Dosing 96.60 mL/min Estimated GFR (MDRD) > 60 mL/min Glucose 136 (70-140) mg/dL Calcium 9.9 (8.7-10.3) mg/dL Magnesium (1.8-2.4) mg/dL Total Bilirubin 0.4 (0.2-1.0) mg/dL AST 24 (15-37) U/L ALT 27 (14-63) U/L Alkaline Phosphatase 98 (46-116) U/L Creatine Kinase 427 H* (26-276) U/L CK-MB (CK-2) 2.69 (0.00-3.60) ng/mL Troponin I High Sens 6.100 (0-76.000) pg/mL B-Natriuretic Peptide 24 (0-100) pg/mL Total Protein 9.0 H (6.4-8.2) g/dL Albumin 4.81 (3.40-5.00) g/dL SARS CoV-2 RNA Rapid JAMAAL (NEGATIVE) 05/05/21 05/06/21 Range/Units 22:22 06:45 WBC (5.00-10.00) 10^3/uL RBC (4.50-6.00) 10^6/uL Hgb (13.0-17.0) g/dL Hct (40.0-52.0) % MCV (82.0-92.0) fL MCH (27.0-31.0) pg MCHC (32.0-36.0) g/dL RDW (11.5-14.5) % Plt Count (150-400) 10^3/uL MPV (7.4-10.4) fL Immature Gran % (Auto) (0.0-5.0) % Neut % (Auto) (50.0-70.0) % Lymph % (Auto) (20.0-40.0) % [place] % (Auto) (2.0-8.0) % Eos % (Auto) (1.0-3.0) % Baso % (Auto) (0.0-1.0) % Neut # (Auto) (2.50-7.00) 10^3/uL Lymph # (Auto) (1.00-4.00) 10^3/uL [place] # (Auto) (0.10-0.80) 10^3/uL Eos # (Auto) (0.10-0.30) 10^3/uL Baso # (Auto) (0.00-0.10) 10^3/uL Immature Gran # (Auto) (0.00-0.50) 10^3/uL PT (9.2-11.2) SEC INR (0.9-1.1) APTT (22.8-31.4) SEC Sodium (136-145) mmol/L Potassium (3.5-5.1) mmol/L Chloride (98-107) mmol/L Carbon Dioxide (21.0-32.0) mmol/L Anion Gap (5-15) mmol/L BUN (7-18) mg/dL Creatinine (0.51-1.17) mg/dL Est Cr Clr Drug Dosing mL/min Estimated GFR (MDRD) mL/min Glucose (70-140) mg/dL Calcium (8.7-10.3) mg/dL Magnesium 1.9 (1.8-2.4) mg/dL Total Bilirubin (0.2-1.0) mg/dL AST (15-37) U/L ALT (14-63) U/L Alkaline Phosphatase (46-116) U/L Creatine Kinase (26-276) U/L CK-MB (CK-2) (0.00-3.60) ng/mL Troponin I High Sens 13.600 (0-76.000) pg/mL B-Natriuretic Peptide (0-100) pg/mL Total Protein (6.4-8.2) g/dL Albumin (3.40-5.00) g/dL SARS CoV-2 RNA Rapid JAMAAL Negative (NEGATIVE) Med Orders - Current: Current Medications Diltiazem HCl 125 mg/ Sodium (Chloride) 125 mls @ 5 mls/hr IV TITRATE YOGESH; P rotocol Last Admin: 05/05/21 23:24 Dose: 5 mg/hr, 5 mls/hr Documented by: Melatonin (Melatonin 3 Mg Tab) 3 mg PO BEDTIME PRN PRN Reason: Insomnia Last Admin: 05/05/21 23:46 Dose: 3 mg Documented by: Discontinued Medications Diltiazem HCl (Diltiazem 25 Mg/5 Ml Sdv) 20 mg IVPUSH ONETIME ONE Stop: 05/05/21 21:26 Last Admin: 05/05/21 21:47 Dose: 20 mg Documented by: Diltiazem HCl 125 mg/ Sodium (Chloride) 125 mls @ 15 mls/hr IV TITRATE YOGESH Sodium Chloride (Normal Saline) 1,000 mls @ 999 mls/hr IV .BOLUS ONE Stop: 05/05/21 22:57 Last Admin: 05/05/21 22:00 Dose: 999 mls/hr Documented by: Diltiazem HCl 125 mg/ Sodium (Chloride) 125 mls @ 5 mls/hr IV TITRATE YOGESH Sodium Chloride (Sodium Chloride 0.9% 10 Ml Syringe) 10 ml FLUSH Q8HR PRN PRN Reason: keep vein open - Exam General: Alert, Oriented, Cooperative, No Acute Distress Lungs: Clear to Auscultation, Normal Respiratory Effort Cardiovascular: Regular Rate, No Murmurs, Irregular Rhythm GI/Abdominal Exam: Normal Bowel Sounds - Patient Data Lab Results Last 24 hrs: Laboratory Results - last 24 hr 05/05/21 05/05/21 05/05/21 Range/Units 21:30 21:30 21:30 WBC 9.79 (5.00-10.00) 10^3/uL RBC 5.51 (4.50-6.00) 10^6/uL Hgb 15.6 (13.0-17.0) g/dL Hct 46.7 (40.0-52.0) % MCV 84.8 (82.0-92.0) fL MCH 28.3 (27.0-31.0) pg MCHC 33.4 (32.0-36.0) g/dL RDW 13.4 (11.5-14.5) % Plt Count 338 (150-400) 10^3/uL MPV 9.6 (7.4-10.4) fL Immature Gran % (Auto) 0.1 (0.0-5.0) % Neut % (Auto) 53.2 (50.0-70.0) % Lymph % (Auto) 38.0 (20.0-40.0) % [place] % (Auto) 7.3 (2.0-8.0) % Eos % (Auto) 1.0 (1.0-3.0) % Baso % (Auto) 0.4 (0.0-1.0) % Neut # (Auto) 5.21 (2.50-7.00) 10^3/uL Lymph # (Auto) 3.72 (1.00-4.00) 10^3/uL [place] # (Auto) 0.71 (0.10-0.80) 10^3/uL Eos # (Auto) 0.10 (0.10-0.30) 10^3/uL Baso # (Auto) 0.04 (0.00-0.10) 10^3/uL Immature Gran # (Auto) 0.01 (0.00-0.50) 10^3/uL PT 10.1 (9.2-11.2) SEC INR 1.0 (0.9-1.1) APTT 26.3 (22.8-31.4) SEC Sodium 139 (136-145) mmol/L Potassium 3.8 (3.5-5.1) mmol/L Chloride 100 (98-107) mmol/L Carbon Dioxide 17.6 L (21.0-32.0) mmol/L Anion Gap 25.2 H (5-15) mmol/L BUN 23 H (7-18) mg/dL Creatinine 1.17 (0.51-1.17) mg/dL Est Cr Clr Drug Dosing 96.60 mL/min Estimated GFR (MDRD) > 60 mL/min Glucose 136 (70-140) mg/dL Calcium 9.9 (8.7-10.3) mg/dL Magnesium (1.8-2.4) mg/dL Total Bilirubin 0.4 (0.2-1.0) mg/dL AST 24 (15-37) U/L ALT 27 (14-63) U/L Alkaline Phosphatase 98 (46-116) U/L Creatine Kinase 427 H* (26-276) U/L CK-MB (CK-2) 2.69 (0.00-3.60) ng/mL Troponin I High Sens 6.100 (0-76.000) pg/mL B-Natriuretic Peptide 24 (0-100) pg/mL Total Protein 9.0 H (6.4-8.2) g/dL Albumin 4.81 (3.40-5.00) g/dL SARS CoV-2 RNA Rapid JAMAAL (NEGATIVE) 05/05/21 05/06/21 Range/Units 22:22 06:45 WBC (5.00-10.00) 10^3/uL RBC (4.50-6.00) 10^6/uL Hgb (13.0-17.0) g/dL Hct (40.0-52.0) % MCV (82.0-92.0) fL MCH (27.0-31.0) pg MCHC (32.0-36.0) g/dL RDW (11.5-14.5) % Plt Count (150-400) 10^3/uL MPV (7.4-10.4) fL Immature Gran % (Auto) (0.0-5.0) % Neut % (Auto) (50.0-70.0) % Lymph % (Auto) (20.0-40.0) % [place] % (Auto) (2.0-8.0) % Eos % (Auto) (1.0-3.0) % Baso % (Auto) (0.0-1.0) % Neut # (Auto) (2.50-7.00) 10^3/uL Lymph # (Auto) (1.00-4.00) 10^3/uL [place] # (Auto) (0.10-0.80) 10^3/uL Eos # (Auto) (0.10-0.30) 10^3/uL Baso # (Auto) (0.00-0.10) 10^3/uL Immature Gran # (Auto) (0.00-0.50) 10^3/uL PT (9.2-11.2) SEC INR (0.9-1.1) APTT (22.8-31.4) SEC Sodium (136-145) mmol/L Potassium (3.5-5.1) mmol/L Chloride (98-107) mmol/L Carbon Dioxide (21.0-32.0) mmol/L Anion Gap (5-15) mmol/L BUN (7-18) mg/dL Creatinine (0.51-1.17) mg/dL Est Cr Clr Drug Dosing mL/min Estimated GFR (MDRD) mL/min Glucose (70-140) mg/dL Calcium (8.7-10.3) mg/dL Magnesium 1.9 (1.8-2.4) mg/dL Total Bilirubin (0.2-1.0) mg/dL AST (15-37) U/L ALT (14-63) U/L Alkaline Phosphatase (46-116) U/L Creatine Kinase (26-276) U/L CK-MB (CK-2) (0.00-3.60) ng/mL Troponin I High Sens 13.600 (0-76.000) pg/mL B-Natriuretic Peptide (0-100) pg/mL Total Protein (6.4-8.2) g/dL Albumin (3.40-5.00) g/dL SARS CoV-2 RNA Rapid JAMAAL Negative (NEGATIVE) Result Diagrams: 05/05/21 21:30 05/05/21 21:30 Sepsis Event Note - Evaluation Sepsis Screening Result: No Definite Risk - Focused Exam Vital Signs: Vital Signs Temp Pulse Resp BP BP Pulse Ox Pulse Ox 05/06/21 06:54 98.1 F 75 18 97/65 98 05/06/21 06:03 67 99/64 05/06/21 05:00 71 93/64 05/06/21 04:01 70 95/64 05/06/21 03:43 111/75 05/06/21 03:00 97.9 F 83 20 91/56 L 97 05/06/21 02:18 83 96/55 L 05/06/21 02:00 90 90/57 L 05/06/21 01:45 86 108/63 05/06/21 01:31 90 98/59 L 05/06/21 01:26 88 103/60 05/06/21 01:05 90 102/68 05/06/21 00:50 92 117/63 05/06/21 00:35 93 109/68 05/06/21 00:20 93 110/69 05/06/21 00:05 91 104/61 05/05/21 23:50 99 111/72 05/05/21 23:35 116 H 122/64 05/05/21 23:23 97.9 F 73 122/75 05/05/21 23:05 102 H 20 102/70 98 05/05/21 22:32 99 05/05/21 22:28 113 H 18 105/68 98 05/05/21 22:13 101 H 110/74 05/05/21 22:00 115 H 24 H 122/78 100 05/05/21 21:45 144 H 26 H 124/66 97 - Problem List Review Problem List Initiated/Reviewed/Updated: Yes - Assessment Assessment:: Acute Hospital Problems: Atrial-fibrillation with RVR, now HR in the 60-70's. - Will hold diltiazem drip and see how HR responds, if elevates will start oral cardizem - Will refer to Cardiology, patient prefers [facility], due to new onset a-fib in a young male - Will obtain TSH and T4 Secondary problems: Anxiety with occasional panic attacks Hyperlipidemia - Rosuvastatin 20 mg PO daily Code Status: Full Code
[2021-05-06] MEDS ORDERED: Diltiazem 120 MG Cap.CD PO SCH (11:30)
[2021-05-06 14:41] VITALS: BP 120/76; PULSE 61
--- NOTE | 2021-05-06 16:21 | PCM.DCSUM1 ---
Discharge Summary - Hospital Course Free Text/Narrative:: Admission Date: 05/05/2021 Discharge Date: 05/06/2021 Disposition: Home, Self care Acute Hospital Problems: Atrial-fibrillation with RVR, resolved - Referral to cardiology for new-onset of a-fib with RVR, isolated episode Secondary problems: Anxiety with occasional panic attacks Hyperlipidemia - Rosuvastatin 20 mg PO daily Code Status: Full Code Zev was admitted 05/05 via ambulance after he slid into second base during a softball game out of town and rolled over a ball and experience chest tightness, SOB and racing heart. 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 In the ER he was noted to be in a-fib with RVR, rate in the 150's. He was given a cardizem bolus and started on a drip and his HR eventually came down to the 60's where he has remained overnight, although still in a-fib. He has no hx of a-fib, no known family hx of a-fib. He has no hx of thyroid problems. He has been more active recently going for walks, in an attempt to lose weight. He has a hx of anxiety with panic attacks as well as hyperlipidemia. No hx of HTN. He has remained on a diltiazem drip at 5mg/hr keeping his HR in the 60's. He can feel the abnormal rhythm of his heart but his chest tightness has resolved. He has some mild SOB. Troponin x 2 negative. Last check was this AM with labs. His HR was in the 60's on rounds this AM and so his diltiazem drip was stopped around 9AM. Around 11AM HR was up to the 80's to low 100's without activity and so he was given Diltiazem XR 120 mg PO x 1 at 11:30AM. He noted around 1:30 PM that his SOB was gone as were his palpitations and he felt much better and it was noted on the monitor technician that he had converted to NSR. He was up walking briskly prior to discharge and stayed in NSR. Thyroid studies were normal. No clear etiology for the a-fib with RVR. He has had a 60 pound weight loss in the past 2 months with the [employer] plan. I am going to refer him to cardiology for consultation about new, isolated onset of a-fib with RVR. At this time, no new medications were prescribed. Diagnosis: Stroke: No Modified [place] Scale: No Symptoms at All Modified [place] Scale Score: 0 - Discharge Data Discharge Date: 05/06/21 Discharge Disposition: Home, Self-Care 01 Condition: Good - Referral to Home Health Primary Care Physician: Angelica Blanchard MD - Patient Instructions Diet: Usual Diet as Tolerated - Discharge Plan *PRESCRIPTION DRUG MONITORING PROGRAM REVIEWED*: Not Applicable *COPY OF PRESCRIPTION DRUG MONITORING REPORT IN PATIENT ADRIEN: Not Applicable Home Medications: Home Meds Rosuvastatin Calcium 20 mg PO DAILY 06/01/20 [History] Referrals: Angelica Blanchard MD [Primary Care Provider] - - Discharge Summary/Plan Comment DC Time >30 min.: No - General Info Date of Service: 05/06/21 Admission Dx/Problem (Free Text: New onset A-fib with RVR. - Patient Data Vitals - Most Recent: Last Vital Signs Temp 96.5 F L 05/06/21 14:40 Pulse 61 05/06/21 14:40 Resp 18 05/06/21 14:40 BP 120/76 05/06/21 14:40 Pulse Ox 97 05/06/21 14:40 Weight - Most Recent: 302 lb I&O - Last 24 hours: Intake & Output 05/06/21 05/06/21 05/06/21 06:59 14:59 22:59 Intake Total 235 670 Balance 235 670 Lab Results - Last 24 hrs: Laboratory Results - last 24 hr 05/05/21 05/05/21 05/05/21 Range/Units 21:30 21:30 21:30 WBC 9.79 (5.00-10.00) 10^3/uL RBC 5.51 (4.50-6.00) 10^6/uL Hgb 15.6 (13.0-17.0) g/dL Hct 46.7 (40.0-52.0) % MCV 84.8 (82.0-92.0) fL MCH 28.3 (27.0-31.0) pg MCHC 33.4 (32.0-36.0) g/dL RDW 13.4 (11.5-14.5) % Plt Count 338 (150-400) 10^3/uL MPV 9.6 (7.4-10.4) fL Immature Gran % (Auto) 0.1 (0.0-5.0) % Neut % (Auto) 53.2 (50.0-70.0) % Lymph % (Auto) 38.0 (20.0-40.0) % Phillips % (Auto) 7.3 (2.0-8.0) % Eos % (Auto) 1.0 (1.0-3.0) % Baso % (Auto) 0.4 (0.0-1.0) % Neut # (Auto) 5.21 (2.50-7.00) 10^3/uL Lymph # (Auto) 3.72 (1.00-4.00) 10^3/uL Phillips # (Auto) 0.71 (0.10-0.80) 10^3/uL Eos # (Auto) 0.10 (0.10-0.30) 10^3/uL Baso # (Auto) 0.04 (0.00-0.10) 10^3/uL Immature Gran # (Auto) 0.01 (0.00-0.50) 10^3/uL PT 10.1 (9.2-11.2) SEC INR 1.0 (0.9-1.1) APTT 26.3 (22.8-31.4) SEC Sodium 139 (136-145) mmol/L Potassium 3.8 (3.5-5.1) mmol/L Chloride 100 (98-107) mmol/L Carbon Dioxide 17.6 L (21.0-32.0) mmol/L Anion Gap 25.2 H (5-15) mmol/L BUN 23 H (7-18) mg/dL Creatinine 1.17 (0.51-1.17) mg/dL Est Cr Clr Drug Dosing 96.60 mL/min Estimated GFR (MDRD) > 60 mL/min Glucose 136 (70-140) mg/dL Calcium 9.9 (8.7-10.3) mg/dL Magnesium (1.8-2.4) mg/dL Total Bilirubin 0.4 (0.2-1.0) mg/dL AST 24 (15-37) U/L ALT 27 (14-63) U/L Alkaline Phosphatase 98 (46-116) U/L Creatine Kinase 427 H* (26-276) U/L CK-MB (CK-2) 2.69 (0.00-3.60) ng/mL Troponin I High Sens 6.100 (0-76.000) pg/mL B-Natriuretic Peptide 24 (0-100) pg/mL Total Protein 9.0 H (6.4-8.2) g/dL Albumin 4.81 (3.40-5.00) g/dL Free T4 (0.76-1.46) ng/dL TSH, Ultra Sensitive (0.340-4.820) uIU/mL SARS CoV-2 RNA Rapid JAMAAL (NEGATIVE) 05/05/21 05/06/21 05/06/21 Range/Units 22:22 06:30 06:45 WBC (5.00-10.00) 10^3/uL RBC (4.50-6.00) 10^6/uL Hgb (13.0-17.0) g/dL Hct (40.0-52.0) % MCV (82.0-92.0) fL MCH (27.0-31.0) pg MCHC (32.0-36.0) g/dL RDW (11.5-14.5) % Plt Count (150-400) 10^3/uL MPV (7.4-10.4) fL Immature Gran % (Auto) (0.0-5.0) % Neut % (Auto) (50.0-70.0) % Lymph % (Auto) (20.0-40.0) % Phillips % (Auto) (2.0-8.0) % Eos % (Auto) (1.0-3.0) % Baso % (Auto) (0.0-1.0) % Neut # (Auto) (2.50-7.00) 10^3/uL Lymph # (Auto) (1.00-4.00) 10^3/uL Phillips # (Auto) (0.10-0.80) 10^3/uL Eos # (Auto) (0.10-0.30) 10^3/uL Baso # (Auto) (0.00-0.10) 10^3/uL Immature Gran # (Auto) (0.00-0.50) 10^3/uL PT (9.2-11.2) SEC INR (0.9-1.1) APTT (22.8-31.4) SEC Sodium (136-145) mmol/L Potassium (3.5-5.1) mmol/L Chloride (98-107) mmol/L Carbon Dioxide (21.0-32.0) mmol/L Anion Gap (5-15) mmol/L BUN (7-18) mg/dL Creatinine (0.51-1.17) mg/dL Est Cr Clr Drug Dosing mL/min Estimated GFR (MDRD) mL/min Glucose (70-140) mg/dL Calcium (8.7-10.3) mg/dL Magnesium 1.9 (1.8-2.4) mg/dL Total Bilirubin (0.2-1.0) mg/dL AST (15-37) U/L ALT (14-63) U/L Alkaline Phosphatase (46-116) U/L Creatine Kinase (26-276) U/L CK-MB (CK-2) (0.00-3.60) ng/mL Troponin I High Sens 13.600 (0-76.000) pg/mL B-Natriuretic Peptide (0-100) pg/mL Total Protein (6.4-8.2) g/dL Albumin (3.40-5.00) g/dL Free T4 1.01 (0.76-1.46) ng/dL TSH, Ultra Sensitive 1.133 (0.340-4.820) uIU/mL SARS CoV-2 RNA Rapid JAMAAL Negative (NEGATIVE) Med Orders - Current: Current Medications Diltiazem HCl (Diltiazem 120 Mg Cap.Cd) 120 mg PO DAILY YOGESH Last Admin: 05/06/21 11:30 Dose: 120 mg Documented by: Diltiazem HCl 125 mg/ Sodium (Chloride) 125 mls @ 5 mls/hr IV TITRATE YOGESH; Protocol Last Admin: 05/05/21 23:24 Dose: 5 mg/hr, 5 mls/hr Documented by: Melatonin (Melatonin 3 Mg Tab) 3 mg PO BEDTIME PRN PRN Reason: Insomnia Last Admin: 05/05/21 23:46 Dose: 3 mg Documented by: Rosuvastatin Mg Tab 0 each PO DAILY YOGESH Discontinued Medications Diltiazem HCl (Diltiazem 25 Mg/5 Ml Sdv) 20 mg IVPUSH ONETIME ONE Stop: 05/05/21 21:26 Last Admin: 05/05/21 21:47 Dose: 20 mg Documented by: Diltiazem HCl 125 mg/ Sodium (Chloride) 125 mls @ 15 mls/hr IV TITRATE YOGESH Sodium Chloride (Normal Saline) 1,000 mls @ 999 mls/hr IV .BOLUS ONE Stop: 05/05/21 22:57 Last Admin: 05/05/21 22:00 Dose: 999 mls/hr Documented by: Diltiazem HCl 125 mg/ Sodium (Chloride) 125 mls @ 5 mls/hr IV TITRATE YOGESH Sodium Chloride (Sodium Chloride 0.9% 10 Ml Syringe) 10 ml FLUSH Q8HR PRN PRN Reason: keep vein open - Exam General: Reports: Alert, Oriented, Cooperative, No Acute Distress
[2021-05-07] MEDS ORDERED: ROSUVASTATIN PO SCH (09:00)
== END 2021-05-06 17:26 | disposition home or self-care (01) ==
LOC: KA.ED 21:19 → KA.MS 22:27 → UNDOADMOB 22:35 → KA.MS 22:35
PROVIDERS: ADMIT Physician Assistant Medical; ATTEND Internal Medicine
DX: I48.91 Unspecified atrial fibrillation (principal); E78.5 Hyperlipidemia, unspecified; F41.9 Anxiety disorder, unspecified; Z20.822 Contact with and (suspected) exposure to COVID-19; E78.00 Pure hypercholesterolemia, unspecified; E66.9 Obesity, unspecified; Z68.38 Body mass index [BMI] 38.0-38.9, adult
CPT/HCPCS: 36415; 71045; 80053; 82550; 82553; 83735; 83880; 84439; 84443; 84484; 85025; 85610; 85730; 93005; 96365; 96366; 96376; 99220; 99285-25; A9270-GY; G0378; J3490; J7030; U0002